=== PATIENT | female | born 1960 | race Caucasian/White ===

== ENCOUNTER → 2020-06-23 | Outpatient (CLI) | payer BC ==
--- NOTE | 2020-06-25 10:41 | RAD ---
DATE: June 23, 2020 EXAM: MAMMO YOKASTA SCREENING BILATERAL HISTORY: Screening study. COMPARISON: 2016 and 2019 This study was interpreted with the benefit of Computerized Aided Detection (CAD). FINDINGS: Breast Density: FATTY The breast parenchyma is primarily fatty replaced. Breast parenchyma level density A.. There are no suspicious microcalcifications or evidence of architectural distortion. There is a nodule seen at the 12:00 position of the mid aspect of the left breast. In the MLO 3-D image, it appears ro be located medial to the nipple. Therefore, it is possible that this may be located at the 11:00 position. Regardless, recommend left breast sonogram from the 10:00 to 2:00 position of the left breast for further evaluation. Right breast is stable. IMPRESSION: Nodule of the left breast. Left breast sonography is recommended. BI-RADS CATEGORY: 0 INCOMPLETE: NEEDS ADDITIONAL IMAGING EVALUATION AND/OR PRIOR MAMMOGRAMS FOR COMPARISON. RECOMMENDED FOLLOW-UP: ADD ADDITIONAL IMAGING PQRS compliance statement: Patient information was entered into a reminder system with a target due date now for the next imaging study. Mammography is a sensitive method for finding small breast cancers, but it does not detect them all and is not a substitute for careful clinical examination. A negative mammogram does not negate a clinically suspicious finding and should not result in delay in biopsying a clinically suspicious abnormality. "Our facility is accredited by the [employer] Mammography [employer]." The patient's breast density may affect the ability of mammography to detect breast cancer. There are 4 categories of breast density, A, B, C and D. Breast density A means that most of the breast tissue is replaced with adipose tissue and therefore is not dense. Breast density B means that the breast tissue is mildly dense and scattered. Breast density C means that the breast tissue is heterogeneously dense. Breast density D means that the breast tissue is very dense. Breast densities especially C and D may decrease the sensitivity of mammography to detect breast cancer. Therefore, the patient may benefit from 3-D breast mammography (3D breast tomography) as a part of their screening mammogram. Insurance may or may not pay for this additional imaging. The patient's breast density based on today's mammogram is category A.
== END ==
LOC: MAMMO 08:35
PROVIDERS: ATTEND Family Medicine
DX: Z12.31 Encounter for screening mammogram for malignant neoplasm of breast (principal)
CPT/HCPCS: 77063; 77067

== ENCOUNTER → 2020-07-01 | Outpatient (CLI) | payer BC ==
--- NOTE | 2020-07-01 14:03 | RAD ---
EXAM: Left breast sonogram. HISTORY: 60-year-old female presents for evaluation of a nodule within the left breast demonstrated o n a screening mammogram dated 06/23/2020. TECHNIQUE: Sonographic imaging of the left breast targeted to the site of mammographic nodularity was performed. COMPARISON: Mammograms dated 06/23/2020, 03/03/2018 and 07/13/2016. FINDINGS: There is a 8 mm nonvascular circumscribed hypoechoic lesion with internal echoes at the 12: 00 position 9 cm from the nipple, the appearance of which favors a cluster of cysts or benign fibrocy stic lesion. This corresponds with the size and location of a recently demonstrated mammographic nodu le. This appears to be stable compared to mammograms dating 07/13/2016, allowing for differences in im aging technique. There is a cluster of stable appearing calcifications in this location. No additiona l measurable lesion is seen. There is no suspicious axillary lymph node. IMPRESSION: 1. 8 mm suspected benign cluster of cysts or benign fibrocystic lesion at the 12:00 position 9 cm fro m the nipple, likely accounting for the mammographic finding of concern. There is a small cluster of suspected benign microcalcifications in this location on the prior mammogram which is also mammograph ically stable when allowing for differences in imaging technique. 2. BI-RADS Category 3: Probably benign finding(s). Precautionary short term follow up with a diagnost ic left breast mammogram in 6 months is recommended. Electronically signed by: Thalia Shin MD (07/01/2020 2:01 PM) [id number]
== END ==
LOC: US 12:57
PROVIDERS: ATTEND Family Medicine
DX: N60.02 Solitary cyst of left breast (principal)
CPT/HCPCS: 76641

== ENCOUNTER → 2021-01-13 | Outpatient (CLI) | payer BC ==
--- NOTE | 2021-01-13 14:41 | RAD ---
EXAMINATION: MG DIGITAL UNILAT DIAGNOSTIC MAMMO WITH YOKASTA CLINICAL HISTORY: Six-month follow-up left breast abnormality TECHNIQUE: Digital craniocaudal and mediolateral oblique views of the left breast obtained with 3-D t omosynthesis. COMPARISON: 06/23/2020, 03/03/2018 BREAST COMPOSITION: The breasts are almost entirely fatty. FINDINGS: Small focal asymmetry 12:00 position left breast, similar to prior study. No evidence of new suspicio us mass, calcifications, or areas architectural distortion. IMPRESSION: Probably benign small focal asymmetry superior left breast. BI-RADS ASSESSMENT: Category 3: Probably Benign RECOMMENDATION: Recommend follow-up bilateral mammogram in 6 months. PQRS compliance statement - Patient information was entered into a reminder system with a target due date for the next mammogram. "Our facility is accredited by the [employer] Mammography [employer]." Electronically signed by: Fabien Valderrama DO (01/13/2021 2:38 PM) [id number]
== END ==
LOC: MAMMO 13:54
PROVIDERS: ATTEND Family Medicine
DX: N64.89 Other specified disorders of breast (principal)
CPT/HCPCS: 77065; G0279; 77061

== ENCOUNTER → 2021-03-23 | Outpatient (CLI) | payer BC ==
--- NOTE | 2021-03-23 10:25 | RAD ---
EXAM: Abdomen sonogram. HISTORY: Hepatic steatosis. Elevated liver enzyme laboratory values. TECHNIQUE: Sonographic imaging of the abdomen was performed. COMPARISON: None. FINDINGS: The liver is enlarged. There is hepatic steatosis. No focal hepatic lesion is seen. The com mon bile duct is normal in caliber. The gallbladder is unremarkable. The right kidney, spleen, pancre as, aorta and inferior vena cava are unremarkable. There is a 2.5 cm hypoechoic lesion within the lat eral left kidney, the appearance of which favors a cyst. IMPRESSION: 1. Hepatomegaly and hepatic steatosis. 2. 2.5 cm suspected left renal cyst. In the absence of prior studies to confirm stability, sonographi c follow-up can be performed in approximately 6 months to confirm benignity. Electronically signed by: Thalia Shin MD (03/23/2021 10:22 AM) [id number]
== END ==
LOC: US 07:44
PROVIDERS: ATTEND Physician Assistant
DX: R16.0 Hepatomegaly, not elsewhere classified (principal); K76.0 Fatty (change of) liver, not elsewhere classified; N28.89 Other specified disorders of kidney and ureter
CPT/HCPCS: 76700

== ENCOUNTER → 2021-03-27 | Outpatient (CLI) | payer BC ==
--- NOTE | 2021-03-27 16:26 | RAD ---
EXAM: Renal sonogram. HISTORY: Renal cyst. TECHNIQUE: Sonographic imaging the kidneys and bladder was performed. COMPARISON: None. FINDINGS: The kidneys are normal in size. No solid or cystic renal lesion is seen. The previously rusty cribed left renal cyst is not seen. This may be due to artifact from cortical lobulation. The bladder volume is 26 cc. There is no hydronephrosis. There is incidental hepatic steatosis. IMPRESSION: 1. No convincing renal cyst. This may be due to renal cortical lobulation on the prior exam. Evaluati on is limited due to body habitus. 2. No acute sonographic finding. Electronically signed by: Thalia Shin MD (03/27/2021 4:23 PM) [id number]
== END ==
LOC: US 15:49
PROVIDERS: ATTEND Family Medicine
DX: N28.1 Cyst of kidney, acquired (principal); K76.0 Fatty (change of) liver, not elsewhere classified
CPT/HCPCS: 76770